=== PATIENT | female | born 1940 | race American Indian/Alaskan Native ===

== ENCOUNTER 2019-05-28 07:57 | Day surgery (SDC) | payer MEDICARE, OTHER ==
[2019-05-28] MEDS ORDERED: HEPARIN/NS 5000 UNIT/500ML 1,000 ML IR ONE (09:07)
[2019-05-28] MEDS: SODIUM CHLORIDE 0.9% 500 ML 500 ML IV SCH ×2 (09:09→11:10)
[2019-05-28] MEDS ORDERED: hydrALAZINE 20 MG/1 ML INJ IV NR (09:30)
[2019-05-28] MEDS: LIDOCAINE (2%) 20 MG/1 ML VIAL 20 ML MDV INFILTRATI ONE ×2 (09:33→09:57)
[2019-05-28] MEDS: MIDAZOLAM 2 MG/2 ML INJ ONE ×2 (09:33→09:51)
[2019-05-28] MEDS: fentaNYL 100 MCG/2 ML INJ ONE ×2 (09:33→09:51)
[2019-05-28] MEDS: VERAPAMIL 5 MG/2 ML INJ ONE ×2 (09:33→09:59)
[2019-05-28] MEDS ORDERED: NITROGLYCERIN SYRINGE 0 ML ONE (09:33)
[2019-05-28] MEDS: HEPARIN 10,000 UNITS/10 ML VIAL ONE ×2 (09:34→09:58)
[2019-05-28] MEDS ORDERED: ATROPINE 0.1% (1 MG/10 ML) CARDIAC SYRINGE ONE (10:11)
[2019-05-28] MEDS ORDERED: SODIUM CHLORIDE 0.9% 500 ML 500 ML ONE (10:12)
--- NOTE | 2019-05-28 10:45 | Short Stay Summary ---
Short Stay Documentation Date of service: 05/28/19 - History H&P: obtained from office - Allergies and Medications Current Medications: Allergies No Known Allergies Allergy (Verified 05/28/19 09:02) Home Medications Medication Instructions Recorded Confirmed Last Taken Type Aspirin EC [Halfprin EC] 81 mg PO DAILY 05/27/19 05/28/19 05/28/19 07:00 History 81 mg Metoprolol [Lopressor TAB] 50 mg PO DAILY 05/27/19 05/28/19 05/28/19 07:00 History 50 mg Losartan [Cozaar] 25 mg PO DAILY 05/28/19 05/28/19 05/28/19 07:00 History Active Medications Hydralazine HCl (Apresoline) 20 mg IV ONCE NR Stop: 05/28/19 15:00 Last Admin: 05/28/19 09:18 Dose: 20 mg Documented by: Sodium Chloride (Nacl 0.9% 500 Ml) 500 mls @ 50 mls/hr IV DIRECT THOMAS Stop: 05/28/19 18:59 - Brief post op/procedure progress note Date of procedure: 05/28/19 Pre-op diagnosis: abnormal stress test Post-op diagnosis: other (CAD) Procedure: [facility] - see dictated cath report Anesthesia: local Estimated blood loss: none Condition: stable - Disposition Condition at discharge: Good Disposition: [id number] TO HOME OR SELFCARE - Discharge Diagnoses (1) CAD (coronary artery disease) Status: Chronic (2) HTN (hypertension) Status: Chronic Short Stay Discharge Plan Activity: advance as tolerated Diet: low fat, low cholesterol, low salt Wound: open to air, keep clean and dry, per your surgeon's advice Follow up with: KEITH CHEN MD [Staff Physician] - 7 Days ASHLEY HARRIS DO [Primary Care Provider] - 7 Days Prescriptions: AtorvaSTATin [Lipitor] 40 mg PO QHS #30 tab Metoprolol [Lopressor] 100 mg PO BID #60 tablet
[2019-05-28] MEDS ORDERED: ACETAMINOPHEN 325 MG TAB ONE (10:53)
--- NOTE | 2019-05-28 10:53 | Cardiac Catherization Report ---
INDICATION FOR PROCEDURE: The patient is a 78-year-old -[place] female with history of double mastectomy for breast cancer in 05/2018 with history of hypertension, not well controlled, was having shortness of breath with mild exertion with no chest pain. Lexiscan nuclear imaging showed moderate ischemia in the anterior wall. Hence scheduled for cardiac catheterization for definitive diagnosis and treatment. The patient is aware of the procedure, potential complications and alternatives of therapy available. The patient was brought to the catheterization laboratory in a fasting condition. In the outpatient area, the patient's systolic blood pressure was 200 mmHg, hence received 20 mg of hydralazine and her blood pressure by the time she came to the cardiac catheterization laboratory was 100 to 110 mmHg. The patient is comfortable. DESCRIPTION OF PROCEDURE: The patient was prepared in a standard fashion. The patient was evaluated for moderate sedation and received IV Versed and fentanyl at 9:51 a.m. Subsequently, she was continuously monitored with pulse oximetry and EKG and hemodynamic monitoring. Local anesthesia was given in the right radial artery and subsequently right radial artery puncture was made using 21-gauge arterial puncture needle. A 5-Kazakh slender sheath was introduced. A 5-Kazakh multipurpose catheter was used to obtain the angiograms of the left ventricle done in MACKAY projection. Subsequently, 5-Kazakh pigtail catheter was used to obtain the angiograms of the left coronary artery in multiple views, followed by angiograms of the right coronary artery. At the end of the procedure, catheter and sheath was removed. The patient had very transient bradycardia during the procedure, but reverted back to regular rate without any intervention. The patient's systolic blood pressure around 110 mmHg throughout the procedure. The patient was monitored throughout the procedure for side effects from moderate sedation. Moderate sedation monitoring started at 9:51 a.m. and ended at 10:15 a.m. At the end of the procedure, the patient's oxygen saturations are normal, communicating normally with no focal deficits. Breathing normally. The patient was transferred to the room in stable condition. Radial band was applied for hemostasis. No untoward complications were noted during the procedure. Following findings were noted. HEMODYNAMICS: 1. Opening aortic pressure 106/43, left ventricular pressure 100/12. No gradient across the aortic valve. Estimated ejection fraction more than 65%. 2. Left ventriculogram done in MACKAY projection showed normal sized left ventricle with normal contractility. End-diastolic and systolic volumes are normal. Right coronary artery dominant vessel arises normally from anterior cusp. There is [id number] smooth lesion in the proximal part, approaching 30%. Otherwise, rest of the RCA is angiographically smooth without significant disease. Left coronary artery arises normally from left coronary cusp. There are mild calcifications noted in the area of the proximal LAD and left main. Left main without significant disease. LAD showed 30% smooth proximal and 40% smooth distal lesion. There is a small to medium sized caliber diagonal arising in the very proximal part of the LAD and this shows very severe stenosis at the ostium and proximal part approaching more than 95%. Distal to this vessel, there is a large size diagonal branch, which is without significant disease. Circumflex artery shows very mild disease. Circumflex artery and its branches are without significant disease; however, it is to be noted both circumflex artery and also LAD are very, very tortuous vessels. Collaterals none. FINAL IMPRESSION: Normal sized left ventricle with normal contractility. There is a severe stenosis of the small to medium sized proximal diagonal branch. Rest of the coronaries showed only [id number] disease. At this time, the patient has severe coronary disease in a small diagonal branch. Considering this, we will continue with medical therapy. Also, it appears the patient's blood pressure is not well controlled. It was 200 when she presented to the outpatient area, but responded well with 20 mg of IV hydralazine and was only 100 mmHg throughout the procedure. At this time, the patient tolerated the procedure well. Findings were explained to the patient. Will be continued on medical therapy. [facility]# [id number] RYANNE/SIDNEY ALCANTAR
[2019-05-28] MEDS ORDERED: ACETAMINOPHEN 325 MG TAB PO ONE (11:53)
[2019-05-28] MEDS ORDERED: traMADol 50 MG TAB PO ONE (12:37)
[2019-05-28 14:57] VITALS: BP 158/71
== END 2019-05-28 15:50 | disposition home or self-care (01) ==
LOC: CATHLABREC 07:57
PROVIDERS: ATTEND Internal Medicine
DX: R07.89 Other chest pain (principal); R06.02 Shortness of breath; I10 Essential (primary) hypertension; I25.10 Atherosclerotic heart disease of native coronary artery without angina pectoris; Z79.82 Long term (current) use of aspirin; Z79.899 Other long term (current) drug therapy; Z83.3 Family history of diabetes mellitus; Z87.09 Personal history of other diseases of the respiratory system; Z90.13 Acquired absence of bilateral breasts and nipples; Z85.3 Personal history of malignant neoplasm of breast; Z98.890 Other specified postprocedural states; Z82.49 Family history of ischemic heart disease and other diseases of the circulatory system
CPT/HCPCS: 93005; 93010; 93458; 96374; 99156; 99157; C1887; C1894; J0360; J1644; J2250; J3010; J7040; J0461; Q9967